=== PATIENT | female | born 2000 | race Caucasian/White ===

== ENCOUNTER 2021-01-08 14:50 | Emergency (ER) | payer OTHER ==
[~2021-01-08] VITALS: Ht 154.9 cm; Wt 113.4 kg
[2021-01-08 15:32] VITALS: BP 144/66
--- NOTE | 2021-01-08 15:39 | NUR ---
PT TAKEN TO BED 6.
--- NOTE | 2021-01-08 15:40 | NUR ---
SI precautions in place.
--- NOTE | 2021-01-08 15:47 | NUR ---
SECURITY CALLED TO HOTEL OR [employer]EL RECEPTIONIST [employer]ONG[employer].
--- NOTE | 2021-01-08 16:00 | NUR ---
Lab at bedside. Irina yesica and novel swab handed to CPT Naomi at ER bedside.
--- NOTE | 2021-01-08 16:05 | NUR ---
Dr. Pond is evaluating patient at bedside.
--- NOTE | 2021-01-08 16:10 | NUR ---
20 y/o F BIB self from home with c/c suicidal ideations x 2 weeks. Patient A&Ox4, ambulatory, reporst suicidal ideations for two weeks with worsening S.I for the past week. Pt presents to the ER looking help; states she was at her therapist session yesterday and walked out. Patient states "I feel incompatiable with life." Pt denies any hallucinations, denies any voices; however, states suicide. Patient states she has a plan to OD on pills and has last attempted 1 month ago by ODing on Flexeril. Patient also reporst chronic insomnia worsening 2-3 weeks ago; reports average of 2-4 hrs of sleep per night and poor fluid/PO intake. Patient denies any drug use, states last use of alcohol 1 week ago. PMH: sleep apnea, chronic back pain, migraines, depressive with psychotic features, PTSD, ADHD, anxiety, bipolar d/o Meds: Zyprexa, Remeron Allergies: Haldol (sever muscle spasms) Sx: R knee Addendum: 01/08/21 at 1648 by [facility] SI precautions in place. Bed locked in lowest position, side rails x 2 for pt safety.
--- NOTE | 2021-01-08 16:21 | NUR ---
KIZZY CASTRO CALLED AND REQUESED AN OFFICER TO COME AND EVALUATE PATIENT FOR 5150 HOLD.
--- NOTE | 2021-01-08 16:30 | NUR ---
Telepsych at bedside.
[2021-01-08 16:35] LABS: BASOPHILS # (AUTO) 0.3 K/uL (0.00-0.22); BASOPHILS % (AUTO) 1.6 % (0.0-2.0); EOSINOPHILS % (AUTO) 0.2 % (0.0-4.0); HEMATOCRIT 39.8 % (36-48); HEMOGLOBIN 13.1 g/dL (12.0-16.0); LYMPHOCYTES # (AUTO) 2.3 K/uL (2.5-16.5); MEAN CORPUSCULAR HEMOGLOBIN 27 pg (27-31); MEAN CORPUSCULAR HGB CONC 33 g/dL (33-37); MEAN CORPUSCULAR VOLUME 82.7 fL (80-94); MONOCYTES # (AUTO) 0.5 K/uL (0.8-1.0); MONOCYTES % (AUTO) 3.1 % (1.7-9.3); NEUTROPHILS # (AUTO) 12.3 K/uL (1.8-7.7); NEUTROPHILS % (AUTO) 80.1 % (42.2-75.2); PLATELET COUNT (AUTO) 514 K/uL (140-450); RED BLOOD CELL COUNT(AUTO) 4.81 MIL/uL (4.20-5.40); RED CELL DISTRIBUTION WIDTH 14.5 % (11.6-13.7); WHITE BLOOD COUNT (AUTO) 15.3 K/uL (4.8-10.8)
--- NOTE | 2021-01-08 16:40 | NUR ---
Water cup provided; pt encouraged to void.
--- NOTE | 2021-01-08 17:23 | NUR ---
OFFICER NANCY AT BEDSIDE TO PLACE PT ON 5150.
--- NOTE | 2021-01-08 17:25 | NUR ---
ENRIQUE collected, walked to lab and handed to CPT. Shu
--- NOTE | 2021-01-08 17:41 | NUR ---
Officer Dariusz placed pt on 5150 hold.
[2021-01-08 17:46] LABS: BILIRUBIN,URINE NEGATIVE (NEGATIVE); BLOOD, URINE TRACE-I (NEGATIVE); COLOR,URINE YELLOW (YELLOW); LEUKOCYTE ESTERASE ,URINE 2+ (NEGATIVE); NITRITE, URINE NEGATIVE (NEGATIVE); UGLUCOSE NEGATIVE (NEGATIVE)
[2021-01-08 17:56] LABS: APPEARANCE,URINE CLOUDY (CLEAR)
[2021-01-08 18:04] LABS: BARBITURATE, URINE NEGATIVE ng/ml (NEG <=200); BENZODIAZEPINE, URINE NEGATIVE ng/mL (NEG <=200); CANNABINOID, URINE NEGATIVE ng/mL (NEG <=50); COCAINE, URINE NEGATIVE ng/mL (NEG <=300); OPIATE, URINE NEGATIVE ng/mL (NEG <=2000); PHENCYCLIDINE SCREEN,URINE NEGATIVE ng/mL (NEG <=25)
--- NOTE | 2021-01-08 18:20 | NUR ---
Dr. Mcneal is evaluating patient at bedside.
--- NOTE | 2021-01-08 18:34 | NUR ---
Patient resting in semi-fowlers in position of comfort. Denies any pain. Resiprations even/unlabored. Bed locked in lowest position, side rails x 1.
--- NOTE | 2021-01-08 19:14 | NUR ---
Report and transfer of care endorsed to JOSEFINA Peck.
[2021-01-08 20:00] LABS: ALBUMIN 3.9 g/dL (3.4-5.0); ASPARTATE AMINOTRANSFERASE 20 U/L (15-37); CARBON DIOXIDE 23.9 mmol/L (21-32); CHLORIDE 104 mmol/L (98-107); CREATININE 0.7 mg/dL (0.6-1.3); GFR ARICAN-AMERICAN 136 mL/min (>90); GLUCOSE 98 mg/dL (74-106); POTASSIUM 3.9 mmol/L (3.5-5.1); SODIUM SERUM 140 mmol/L (136-145); TOTAL BILIRUBIN 0.3 mg/dL (0.0-1.0); UREA NITROGEN, BLOOD 8 mg/dL (7-18)
[2021-01-08 20:02] LABS: ACETAMINOPHEN < 0.5 ug/ml (10-30); SALICYLATE < 2.8 mg/dL (2.8-20.0)
--- NOTE | 2021-01-08 21:00 | NUR ---
PT. ASKING FOR PAIN MEDICATION FOR BACK PAIN, PT. STATES "MY BACK IS KILLING ME AND I'M GETTING ANXIOUS." Addendum: 01/08/21 at 2132 by MERLY SIMONA ABEL MADE AWARE. AWAITING ORDERS.
[2021-01-08] MEDS ORDERED: LORazepam 1 MG TAB PO ONE (21:40)
[2021-01-08] MEDS ORDERED: KETOROLAC 60 MG/2 ML VIAL IM ONE (21:40)
--- NOTE | 2021-01-08 22:00 | NUR ---
PT. STATES RELIEF FROM PAIN AND RELIEF FROM ANXIOUSNESS. PT. STATES "I FEEL BETTER NOW."
--- NOTE | 2021-01-08 22:23 | NUR ---
PT. ASKING FOR MEAL. PT. GIVEN TURKEY SANDWHICH AND APPLE/ORANGE JUICE.
--- NOTE | 2021-01-09 00:42 | NUR ---
PT. LAYING IN SUPINE POSITION, WITH EYES CLOSED. AUDIBLE SNORING SOUNDS CAN BE HEARD. NO DISTRESS NOTED. VOICES NO COMPLAINTS AT THIS TIME.
--- NOTE | 2021-01-09 02:15 | NUR ---
PT. LAYING ON LEFT SIDE WITH EYES CLOSED. HR EVEN AND REGULAR. BREATHING UNLABORED.
--- NOTE | 2021-01-09 05:00 | NUR ---
PT. IN SUPINE POSITION, VOICES NO COMPLAINTS AT THIS TIME. AUDIBLE SNORING SOUNDS CAN BE HEARD. HR EVEN AND REGULAR. BREATHING UNLABORED.
--- NOTE | 2021-01-09 07:29 | NUR ---
REPORT GIVEN TO JOSEFINA PETTY. TRANSFER OF CARE AT THIS TIME.
--- NOTE | 2021-01-09 08:00 | NUR ---
PT ALERT AND AWAKE, BREATHING EVEN AND UNLABORED. NO DISTRESS NOTED. WILL CONTINUE TO MONITOR. PT EATING BREAKFAST TRAY
--- NOTE | 2021-01-09 10:01 | NUR ---
PT RESTING WITH EYES CLOSED, BREATHING EVEN AND UNLABORED. NO DISTRESS NOTED. WILL CONTINUE TO MONITOR.
--- NOTE | 2021-01-09 12:00 | NUR ---
PT EATING LUNCH AT THIS TIME. ALERT AND AWAKE, BREATHING EVEN AND UNLABORED. NO DISTRESS NOTED. WILL CONTINUE TO MONITOR.
[2021-01-09] MEDS ORDERED: KETOROLAC 60 MG/2 ML VIAL IM ONE (12:40)
--- NOTE | 2021-01-09 16:00 | NUR ---
PT ALERT AND AWAKE, BREATHING EVEN AND UNLABORED. NO DISTRESS NOTED. WILL CONTINUE TO MONITOR.
--- NOTE | 2021-01-09 19:16 | NUR ---
report received from megan lawson. transfer of care at this time.
--- NOTE | 2021-01-09 19:16 | NUR ---
REPORT GIVEN TO KRISTYN ROCHA, TRANSFER OF CARE AT THIS TIME
--- NOTE | 2021-01-09 19:26 | NUR ---
pt is sitting up in bed, in stable condition.
[2021-01-09] MEDS ORDERED: ACETAMINOPHEN EXTRA STRENGTH 500 MG TAB PO ONE (20:10)
[2021-01-09] MEDS ORDERED: LORazepam 1 MG TAB PO ONE (20:10)
--- NOTE | 2021-01-09 20:56 | NUR ---
pt is resting. equal rise and fall of chest wall. opens eyes to sound. pt is in stable condition. all needs met at this time. bed locked in lowest position, side rails x1.
--- NOTE | 2021-01-09 22:09 | NUR ---
PT AMBULATED TO WITH STEADY GAIT.
--- NOTE | 2021-01-09 22:12 | NUR ---
PT AMBULATED BACK TO BED WITH STEADY GAIT.
--- NOTE | 2021-01-09 22:40 | NUR ---
PT IS REQUESTING A PSYCH REEVAL. PT STATED SHE DOES NOT WANT TO HURT HERSELF, WE CAN KEEP THE MEDS IN HER BACK PACK IN WHICH SHE WAS GOING TO USE TO HURT HERSELF.
--- NOTE | 2021-01-09 23:02 | NUR ---
Late note - Intake was received earlier. Information was faxed to the following facilities for review. [facility]/ [facility]/ [facility]/ [facility]/ [facility]/ [facility]/ [facility] Followed up from faxes earlier. No beds at this time. Will keep facility updated with any information
--- NOTE | 2021-01-09 23:10 | NUR ---
SIMONA STATED IT WAS OKAY FOR PT TO HAVE A PSYCH REEVAL.
--- NOTE | 2021-01-09 23:16 | NUR ---
TELEPSYCH RE-EVALUATION REQUEST SENT - [facility] ID [id number]
--- NOTE | 2021-01-10 01:39 | NUR ---
PSYCH MD STATES PT MAY BE DISCHARGED.
--- NOTE | 2021-01-10 02:20 | NUR ---
PT IS SITTING UP AT END OF BED. ALL NEEDS MET AT THIS TIME.
--- NOTE | 2021-01-10 02:37 | NUR ---
PT AMBULATED TO AND BACK TO BED WITH STEADY GAIT.
--- NOTE | 2021-01-10 04:08 | NUR ---
PT IS SITTING UP IN BED.
[2021-01-10 04:11] VITALS: BP 128/71
--- NOTE | 2021-01-10 04:11 | NUR ---
Patient discharged with v/s stable. Written and verbal after care instructions given and explained. Patient verbalized understanding. Ambulatory with steady gait. All questions addressed prior to discharge. Advised to follow up with PMD.
== END 2021-01-10 04:11 | disposition home or self-care (01) ==
LOC: MED 14:50
DX: R45.851 Suicidal ideations (principal); F15.10 Other stimulant abuse, uncomplicated; F17.210 Nicotine dependence, cigarettes, uncomplicated; Z20.822 Contact with and (suspected) exposure to COVID-19; F14.10 Cocaine abuse, uncomplicated; Z88.8 Allergy status to other drugs, medicaments and biological substances; Z79.899 Other long term (current) drug therapy
CPT/HCPCS: 80053; 80305; 81001; 81025; 85025; 87086; 87426; 96372; 99285; G0480; G0482; J1885; U0003